=== PATIENT | male | born 1955 | race Caucasian/White ===

== ENCOUNTER 2018-08-14 20:23 | Observation (INO) ==
--- NOTE | 2018-08-14 20:46 | ED ---
HPI General Chief Complaint: Chest Pain Stated Complaint: Numbness Time Seen by Provider: 08/14/18 20:33 Source: patient and EMS Mode of arrival: EMS Limitations: no limitations History of Present Illness HPI narrative: 62-year-old male complaint of chest pain left arm and left hand numbness. Patient states that he has history of recurrent left-sided chest pain for past year and a half. Patient was admitted to the hospital in [place] for chest pain a year and half ago and had a stress test done which was normal. Patient states that he has intermittent left-sided chest pain since then. Patient just moved to [facility] recently. Patient does not have a local physician. Patient states that the chest pain started again this evening. Patient states the pain aching pain localized to left chest. Patient denies any palpitation nausea diaphoresis. Patient denies coughing congestion fever chills. EMS was called. Patient was found to be in sinus rhythm with frequent PVCs. Lidocaine 90 mg IV given prior to arrival. Patient denies history hypertension, diabetes, hyperlipidemia. Patient is a smoker. Patient has family history of heart disease. Patient denies any alcohol or drug abuse. MD complaint: chest pain STEMI Alert: No Onset (ago): hour(s) Duration: intermittent Onset: during rest Pain location: left chest Severity: moderate Severity scale (1-10): 7 Quality: aching Pain radiation: none Relieving factors: nothing Exacerbating factors: nothing Treatments prior to arrival chest pain: oxygen and other (Lidocaine 90 mg IV given by EMS.) Related Data Home Medications Medication Instructions Recorded Confirmed No Known Home Medications 08/14/18 08/14/18 Allergies Allergy/AdvReac Type Severity Reaction Status Date / Time Penicillins Allergy Unknown Unknown Verified 08/14/18 20:36 Review of Systems ROS: all other systems reviewed are negative PMFSH History History Provided By: Patient and Internet Marketing Manager / EMT Social History Social History Substance History: No History of Abuse Second Hand Smoke Exposure: No Smoking Status: Former smoker How Often Do You Have a Drink Containing Alcohol: Never Recent Travel in [place] within the Last 8 Weeks: No Recent Out of Country Travel within the Last 8 Weeks: No Exam Narrative Exam Narrative: GENERAL: Well-nourished, well-developed patient. SKIN: Focused skin assessment warm/dry. HEAD: Normocephalic. EYES: No scleral icterus. No injection or drainage. NECK: Supple, trachea midline. No JVD or lymphadenopathy. CARDIOVASCULAR: Regular rate and rhythm without murmurs, gallops, or rubs. RESPIRATORY: Breath sounds equal bilaterally. No accessory muscle use. GASTROINTESTINAL: Abdomen soft, non-tender, nondistended. MUSCULOSKELETAL: No cyanosis, or edema. BACK: Nontender without obvious deformity. No CVA tenderness. Neurologic exam normal. Course Initial Documented Vital Signs Pulse Rate 81 08/14/18 20:38 Respiratory Rate 20 08/14/18 20:38 Blood Pressure 135/92 H 08/14/18 20:38 Pulse Oximetry 97 08/14/18 20:38 Last Documented Vital Signs Pulse Rate 81 08/14/18 20:45 Respiratory Rate 20 08/14/18 20:45 Blood Pressure 135/92 H 08/14/18 20:45 Pulse Oximetry 97 08/14/18 20:45 Medical Decision Making MDM Narrative Medical decision making narrative: 62-year-old male with recurrent left-sided chest pain. Patient had constant left arm left hand numbness for the past 6 months. Medical Screen Exam Complete: Yes Emergency Medical Condition: Yes Differential Diagnosis Differential Diagnosis: Differential diagnosis including angina, PR, PE, pneumothorax, musculoskeletal. Lab Data Lab results reviewed: Yes I reviewed the patient's lab results. Result diagrams: 08/14/18 20:50 08/14/18 20:50 Lab Results 08/14/18 08/14/18 08/14/18 Range/Units 20:50 20:50 20:50 WBC 6.3 (4.0-11.0) th/mm3 RBC 4.69 (4.50-5.90) mil/mm3 Hgb 13.9 (13.0-17.0) gm/dL Hct 42.3 (39.0-51.0) % MCV 90.2 (80.0-100.0) fL MCH 29.6 (27.0-34.0) pg MCHC 32.8 (32.0-36.0) % RDW 13.6 (11.6-17.2) % Plt Count 277 (150-450) th/mm3 MPV 7.7 (7.0-11.0) fL Neut % (Auto) 59.9 (16.0-70.0) % Lymph % (Auto) 28.7 (9.0-44.0) % [place] % (Auto) 8.2 H (0.0-8.0) % Eos % (Auto) 2.5 (0.0-4.0) % Baso % (Auto) 0.7 (0.0-2.0) % Neut # (Auto) 3.8 (1.8-7.7) th/mm3 Lymph # (Auto) 1.8 (1.0-4.8) th/mm3 [place] # (Auto) 0.5 (0.0-0.9) th/mm3 Eos # (Auto) 0.2 (0.0-0.4) th/mm3 Baso # (Auto) 0.0 (0.0-0.2) th/mm3 WBC Differential . Differential Comment Auto diff final PT 10.5 (9.8-11.6) sec INR 1.0 Ratio APTT 25.9 (24.3-30.1) sec Sodium 141 (136-145) meq/L Potassium 3.7 (3.5-5.1) meq/L Chloride 108 H (98-107) meq/L Carbon Dioxide 25.2 (21.0-32.0) meq/L Anion Gap 8 (5-15) meq/L BUN 32 H (7-18) mg/dL Creatinine 0.92 (0.60-1.30) mg/dL Estimated GFR 83 L (>89) mL/min Random Glucose 82 (74-106) mg/dL Calcium 8.4 L (8.5-10.1) mg/dL Total Bilirubin 0.5 (0.2-1.0) mg/dL AST 14 L (15-37) U/L ALT 17 (12-78) U/L Alkaline Phosphatase 104 (45-117) U/L Total Creatine Kinase (39-308) U/L CK-MB (CK-2) (0.5-3.6) ng/mL Troponin I Less than 0.02 L (0.02-0.05) ng/mL Total Protein 6.9 (6.4-8.2) g/dL Albumin 3.5 (3.4-5.0) g/dL Lipase 79 (73-393) U/L 08/14/18 Range/Units 20:50 WBC (4.0-11.0) th/mm3 RBC (4.50-5.90) mil/mm3 Hgb (13.0-17.0) gm/dL Hct (39.0-51.0) % MCV (80.0-100.0) fL MCH (27.0-34.0) pg MCHC (32.0-36.0) % RDW (11.6-17.2) % Plt Count (150-450) th/mm3 MPV (7.0-11.0) fL Neut % (Auto) (16.0-70.0) % Lymph % (Auto) (9.0-44.0) % [place] % (Auto) (0.0-8.0) % Eos % (Auto) (0.0-4.0) % Baso % (Auto) (0.0-2.0) % Neut # (Auto) (1.8-7.7) th/mm3 Lymph # (Auto) (1.0-4.8) th/mm3 [place] # (Auto) (0.0-0.9) th/mm3 Eos # (Auto) (0.0-0.4) th/mm3 Baso # (Auto) (0.0-0.2) th/mm3 WBC Differential Differential Comment PT (9.8-11.6) sec INR Ratio APTT (24.3-30.1) sec Sodium (136-145) meq/L Potassium (3.5-5.1) meq/L Chloride (98-107) meq/L Carbon Dioxide (21.0-32.0) meq/L Anion Gap (5-15) meq/L BUN (7-18) mg/dL Creatinine (0.60-1.30) mg/dL Estimated GFR (>89) mL/min Random Glucose (74-106) mg/dL Calcium (8.5-10.1) mg/dL Total Bilirubin (0.2-1.0) mg/dL AST (15-37) U/L ALT (12-78) U/L Alkaline Phosphatase (45-117) U/L Total Creatine Kinase 120 (39-308) U/L CK-MB (CK-2) 1.5 (0.5-3.6) ng/mL Troponin I (0.02-0.05) ng/mL Total Protein (6.4-8.2) g/dL Albumin (3.4-5.0) g/dL Lipase (73-393) U/L Imaging Data Attestation: I personally reviewed and interpreted this imaging study as follows : Radiologist's impression: Chest X-Ray 08/14/18 20:37 CONCLUSION: The lungs are clear. Discharge Plan Discharge Disposition Patient Disposition: 30 Still Patient Discharge Details Diagnosis: Chest pain Physicians Team ED Provider: Sabas Jiménez Primary Care Provider: UNKNOWN, Rxs /Orders / Referrals /Forms Prescriptions: No Action No Known Home Medications RF: 0 Discharge Instructions Patient Printed Instructions: Chest Pain (ED) Discharge Interventions Interventions: Vital Signs Last Done: 08/14/18 20:45 Status ED Status: With Doctor
--- NOTE | 2018-08-14 21:17 | XR ---
EXAM DATE: 08/14/2018 8:37 PM EDT AGE/SEX: 62 years / Male INDICATIONS: Chest pain. CLINICAL DATA: This is the patient's initial encounter. Patient reports that signs and symptoms have been present for 1 month and indicates a pain score of 7/10. MEDICAL/SURGICAL HISTORY: None. None. COMPARISON: No prior exams available for comparison. FINDINGS: A single AP view of the chest demonstrates the lungs to be symmetrically aerated without evidence of mass, infiltrate or effusion. The cardiomediastinal contours are unremarkable. Osseous structures a re intact. CONCLUSION: The lungs are clear. Electronically signed by: Luiz Peña MD 08/14/2018 9:16 PM EDT
[2018-08-14 21:20] LABS: Baso % (Auto) 0.7 % (0.0-2.0); Eos # (Auto) 0.2 th/mm3 (0.0-0.4); Eos % (Auto) 2.5 % (0.0-4.0); Hematocrit 42.3 % (39.0-51.0); Hemoglobin 13.9 gm/dL (13.0-17.0); Lymph # (Auto) 1.8 th/mm3 (1.0-4.8); Lymph % (Auto) 28.7 % (9.0-44.0); Mean Corpuscular HGB Conc 32.8 % (32.0-36.0); Mean Corpuscular Hemoglobin 29.6 pg (27.0-34.0); Mean Corpuscular Volume 90.2 fL (80.0-100.0); Mean Platelet Volume 7.7 fL (7.0-11.0); Mono # (Auto) 0.5 th/mm3 (0.0-0.9); Mono % (Auto) 8.2 % (0.0-8.0); Neut # (Auto) 3.8 th/mm3 (1.8-7.7); Neut % (Auto) 59.9 % (16.0-70.0); Platelet Count 277 th/mm3 (150-450); Red Blood Count 4.69 mil/mm3 (4.50-5.90); Red Cell Distribution Width 13.6 % (11.6-17.2); White Blood Count 6.3 th/mm3 (4.0-11.0)
[2018-08-14 21:32] LABS: Activated Partial Thrombo Time 25.9 sec (24.3-30.1); Prothrombin Time 10.5 sec (9.8-11.6)
[2018-08-14 21:38] LABS: Albumin 3.5 g/dL (3.4-5.0); Anion Gap 8 meq/L (5-15); Aspartate Aminotransferase 14 U/L (15-37); Blood Urea Nitrogen 32 mg/dL (7-18); Calcium 8.4 mg/dL (8.5-10.1); Carbon Dioxide 25.2 meq/L (21.0-32.0); Chloride 108 meq/L (98-107); Glomerular Filtration Rate 83 mL/min (>89); Glucose,Random 82 mg/dL (74-106); Lipase 79 U/L (73-393); Potassium 3.7 meq/L (3.5-5.1); Sodium 141 meq/L (136-145)
[2018-08-14 21:41] LABS: Creatine Kinase 120 U/L (39-308)
[2018-08-14 21:44] LABS: Alanine Aminotransferase 17 U/L (12-78); Alkaline Phosphatase 104 U/L (45-117); Total Protein 6.9 g/dL (6.4-8.2)
[2018-08-14 22:08] LABS: Creatine Kinase MB 1.5 ng/mL (0.5-3.6)
[2018-08-15 00:46] LABS: Amphetamine Screen,Urine Neg (Neg); Barbiturate Screen,Urine Neg (Neg); Cannabinoid Screen,Urine Neg (Neg); Cocaine Screen,Urine Neg (Neg)
[2018-08-15 00:54] LABS: Opiate Screen,Urine Neg (Neg)
[2018-08-15 01:11] LABS: Troponin I 0.03 ng/mL (0.02-0.05)
[2018-08-15 03:33] LABS: Creatine Kinase 107 U/L (39-308)
--- NOTE | 2018-08-15 09:15 | P.HPCA ---
History of Present Illness Primary Care Physician: No primary care provider Chief Complaint: Chest pain History of Present Illness: 62-year-old male without known significant medical history presents emergency room for further evaluation for chest pain and concern of elevated blood pressure. Onset 1.5 years. Occurs every other day "or so." Describes episodes as dizziness, left anterior chest pain, headache, bilateral ears ringing, left arm becomes numb and fingers tingling. Chest pain difficult for him to described. Duration varies from minutes to hours. No precipitating or relieving factors. Denies history of hypertension, diabetes, hyperlipidemia, or known coronary artery disease. Denies ever being ordered medication for blood pressure. Endorses similar pain in the past, evaluated with stress testing at [facility]. Recently moved to [facility]. Does not have a primary care provider. Former smoker. No recent illness, fever, recent or remote injury. Past cardiac testing Remote cardiac exercise testing 3 years ago, reported to be normal. Social history No known diabetes, hypertension, coronary artery disease, or hyperlipidemia. Former smoker quit 5 years ago. Denies alcohol or recreational drug use. Single. 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 Remains active, walking daily. Family history Noncontributory for early onset cardiovascular disease - Diagnosis (1) Atypical chest pain Review of Systems All other systems reviewed negative except as stated in HPI PMFSH - History History Provided By: Patient, Server Support Technician / EMT - Medical History Medical History: Medical History (Last Reviewed 08/15/18 @ 14:27 by ARMEN Kulkarni) Patient denies medical problems - Surgical History Surgical History: Surgical History (Last Reviewed 08/15/18 @ 14:27 by ARMEN Kulkarni) No history of previous surgery - Social History I have reviewed the patient's Social History: Yes - Tobacco History Second Hand Smoke Exposure: No Tobacco Use In Past 30 Days: No Smoking Status: Former smoker Packs Per Day: 0.5 years: 40 Smoking End Date: Quit 5 years ago - Alcohol History How Often Do You Have a Drink Containing Alcohol: Never - Substance Use History Substance History: Past History - Travel History Recent Travel in the [place] Within the Last 8 Weeks: No Recent Travel Out of the Country Within the Last 8 Weeks: No - Immunization History Tetanus Immunization: >5 Years Hx Influenza Vaccine This Season: No Medications and Allergies Active Medications: Active Medications Sodium Chloride (Ns Flush) 2 ml IV.FLUSH BID SKY Sodium Chloride (Ns Flush) 2 ml IV.FLUSH PRN PRN PRN Reason: FLUSH AFTER USING IV ACCESS Allergies Allergy/AdvReac Type Severity Reaction Status Date / Time Penicillins Allergy Unknown Unknown Verified 08/14/18 20:36 Exam Vital signs: Vital Signs 08/14/18 20:38 08/14/18 20:45 08/15/18 03:43 Temperature 98.2 F Pulse Rate 81 81 66 Respiratory Rate 20 20 20 Blood Pressure 135/92 H 135/92 H 120/78 Pulse Oximetry 97 97 98 08/15/18 07:55 08/15/18 08:10 Temperature 98.0 F Pulse Rate 60 66 Respiratory Rate 16 Blood Pressure 132/79 Pulse Oximetry 99 Intake & Output 08/14/18 08/15/18 08/15/18 18:59 06:59 18:59 Weight 84.3 kg Other: Date of Last Bowel Movement 08/15/18 Narrative: GENERAL: Alert WN, WD, NAD, male HEAD: NC, AT NECK: Supple, no masses, trachea midline CV: RRR, without murmur, rub, gallop, no JVD, S1-S2. No carotid bruits. Chest wall nontender to palpation. RESP: Clear lungs throughout bilateral, no crackles, wheeze, rhonchi, symmetrical chest rise, nonlabored, able to speak in full sentences ABD: Soft, NT, ND, no masses, positive bowel tones EXT: Pulses +2x4, no dependent edema MS: Normal tone x4 extremities, nontender, no obvious deformities, full range of motion, pain not reproduced with passive ROM of left shoulder or cervical area NEURO: CN II through CN XII grossly intact, motor strength 5/5, gait WNL PSYCH: A+Ox3, pleasant affect, appropriate speech, appropriate mood, insight and judgment SKIN: Normal turgor, normal texture, no lesions, no rashes, brisk cap refill, even hair distribution Results 08/14/18 20:50 08/14/18 20:50 Cardiac Enzymes 08/14/18 08/14/18 08/15/18 Range/Units 20:50 20:50 00:30 AST 14 L (15-37) U/L CK-MB (CK-2) 1.5 (0.5-3.6) ng/mL Troponin I Less than 0.02 L 0.03 (0.02-0.05) ng/mL 08/15/18 Range/Units 02:54 AST (15-37) U/L CK-MB (CK-2) (0.5-3.6) ng/mL Troponin I Less than 0.02 L (0.02-0.05) ng/mL Coagulation 08/14/18 Range/Units 20:50 PT 10.5 (9.8-11.6) sec APTT 25.9 (24.3-30.1) sec CBC 08/14/18 Range/Units 20:50 WBC 6.3 (4.0-11.0) th/mm3 RBC 4.69 (4.50-5.90) mil/mm3 Hgb 13.9 (13.0-17.0) gm/dL Hct 42.3 (39.0-51.0) % Plt Count 277 (150-450) th/mm3 Neut # (Auto) 3.8 (1.8-7.7) th/mm3 Lymph # (Auto) 1.8 (1.0-4.8) th/mm3 [place] # (Auto) 0.5 (0.0-0.9) th/mm3 Eos # (Auto) 0.2 (0.0-0.4) th/mm3 Baso # (Auto) 0.0 (0.0-0.2) th/mm3 Comprehensive Metabolic Panel 08/14/18 Range/Units 20:50 Sodium 141 (136-145) meq/L Potassium 3.7 (3.5-5.1) meq/L Chloride 108 H (98-107) meq/L Carbon Dioxide 25.2 (21.0-32.0) meq/L BUN 32 H (7-18) mg/dL Creatinine 0.92 (0.60-1.30) mg/dL Calcium 8.4 L (8.5-10.1) mg/dL AST 14 L (15-37) U/L ALT 17 (12-78) U/L Alkaline Phosphatase 104 (45-117) U/L Total Protein 6.9 (6.4-8.2) g/dL Albumin 3.5 (3.4-5.0) g/dL Intake and Output 08/14/18 08/15/18 08/15/18 22:59 06:59 14:59 Other: Date of Last Bowel Movement 08/15/18 Weight 84.3 kg - Imaging and Cardiology Imaging: Impressions Chest X-Ray 08/14/18 20:37 CONCLUSION: The lungs are clear. EKG interpretations - EKG EKG results cardiology: sinus rhythm, normal axis, normal QRS, normal ST/T Caprini VTE Risk Assessment Caprini VTE Risk Assessment: Moderate/High Risk (score >= 2) Caprini Risk Assessment Model: Point Value = 1 Point Value = 2 Point Value = 3 Point Value = 5 Age 41-60 Minor surgery BMI > 25 kg/m2 Swollen legs Varicose veins or History of unexplained or recurrent spontaneous Oral contraceptives or hormone replacement Sepsis (< 1 month) Serious lung disease, including pneumonia (< 1 month) Abnormal pulmonary function Acute myocardial infarction Congestive heart failure (< 1 month) History of inflammatory bowel disease Medical patient at bed rest Age 61-74 Arthroscopic surgery Major open surgery (> 45 min) Laparoscopic surgery (> 45 min) Malignancy Confined to bed (> 72 hours) Immobilizing plaster cast Central venous access Age >= 75 History of VTE Family history of VTE Factor V Leiden Prothrombin [id number] Lupus anticoagulant Anticardiolipin antibodies Elevated serum homocysteine Heparin-induced thrombocytopenia Other congenital or acquired thrombophilia Stroke (< 1 month) Elective arthroplasty Hip, pelvis, or leg fracture Acute spinal cord injury (< 1 month) Prophylaxis Regimen: Total Risk Factor Score Risk Level Prophylaxis Regimen 0-1 Low Early ambulation 2 Moderate Order ONE of the following: *Sequential Compression Device (SCD) *Heparin 5000 units SQ BID 3-4 Higher Order ONE of the following medications: *Heparin 5000 units SQ TID *Enoxaparin/Lovenox 40 mg SQ daily (WT < 150 kg, CrCl > 30 mL/min) *Enoxaparin/Lovenox 30 mg SQ daily (WT < 150 kg, CrCl > 10-29 mL/min) *Enoxaparin/Lovenox 30 mg SQ BID (WT < 150 kg, CrCl > 30 mL/min) AND/OR *Sequential Compression Device (SCD) 5 or more Highest Order ONE of the following medications: *Heparin 5000 units SQ TID (Preferred with Epidurals) *Enoxaparin/Lovenox 40 mg SQ daily (WT < 150 kg, CrCl > 30 mL/min) *Enoxaparin/Lovenox 30 mg SQ daily (WT < 150 kg, CrCl > 10-29 mL/min) *Enoxaparin/Lovenox 30 mg SQ BID (WT < 150 kg, CrCl > 30 mL/min) AND *Sequential Compression Device (SCD) Assessment and Plan - Assessment (1) Atypical chest pain Code(s): R07.89 - Other chest pain Status: Acute Plan: Admitted chest pain center. ACS ruled out 3 sets of EKGs and cardiac enzymes. Will be seen and evaluated by Dr. Cj Hudson. Chest discomfort atypical for cardiac etiology, however exercise cardiac testing likely. This will be determined after evaluation by communications intern. If cardiac testing unremarkable, plans to discharge home. Instructed to establish with primary care provider for preventive care and medical management. In regards to his concern of elevated blood pressure, pressure have remains stable and within normal limits. Discuss continuing to monitor at this time, agreeable to plan of care. During exercise cardiac testing patient hypertensive response. Lisinopril 10mg po daily given. H&P: Quality - VTE Deep Vein Thrombosis/Pulmonary Embolism Present on Admission: No
--- NOTE | 2018-08-15 11:27 | TR ---
Date Performed: 08/15/2018 Time Performed: 10:48:54 DOCTOR: Cj Hudson DRUG LIST: CLINICAL HISTORY: CHEST PAIN REASON FOR TEST: REASON FOR ENDING: OBSERVATION: CONCLUSION: Lui protocol completed. Stopped sec to exceeding target heart rate and leg fatigue . Maximum RA=023 Max HR Achieved=92.0% Maximum PR=174/98 Total Exercise Time=8:06. No reprod chest pa in/discomfort. Frequent PVCs. Hypertensive blood pressure response. Upsloping st segments. Good exerc ise tolerance. Recovery quick and unremarkable. COMMENTS: Conclusion: Normal treadmill exercise. No evidence of ischemia.
--- NOTE | 2018-08-15 11:42 | ECG ---
Date Performed: 08/15/2018 Time Performed: 00:28:53 PTAGE: 62 years EKG: Sinus rhythm WITH OCCASIONAL VENTRICULAR PREMATURE COMPLEXES BORDERLINE ECG NO PREVIOUS TRACING DOCTOR: Cj Hudson Interpretating Date/Time 08/15/2018 11:41:39
--- NOTE | 2018-08-15 11:43 | ECG ---
Date Performed: 08/14/2018 Time Performed: 20:44:20 PTAGE: 62 years EKG: Sinus rhythm NORMAL ECG NO PREVIOUS TRACING DOCTOR: Cj Hudson Interpretating Date/Time 08/15/2018 11:42:22
--- NOTE | 2018-08-15 11:52 | ECG ---
Date Performed: 08/15/2018 Time Performed: 03:42:34 PTAGE: 62 years EKG: SINUS BRADYCARDIA WITH SINUS ARRHYTHMIA BORDERLINE ECG PREVIOUS TRACING shows one PVC. DOCTOR: Cj Hudson Interpretating Date/Time 08/15/2018 11:51:10
[2018-08-15 12:21] VITALS: BP 136/76; PULSE 71; RESP 18; TEMP 97.6; O2SAT 98
== END 2018-08-15 13:51 | disposition home or self-care (01) ==
LOC: NEPE 20:23 → NEDA 20:23 → NEPHCDU 08-15 01:05
PROVIDERS: ADMIT Internal Medicine Cardiovascular Disease; ATTEND Internal Medicine Cardiovascular Disease
DX: Z88.0 Allergy status to penicillin; I49.3 Ventricular premature depolarization; R94.31 Abnormal electrocardiogram [ECG] [EKG]; R42 Dizziness and giddiness; R07.89 Other chest pain; F17.200 Nicotine dependence, unspecified, uncomplicated; Z82.49 Family history of ischemic heart disease and other diseases of the circulatory system; R51 Headache